=== PATIENT | male | born 1975 | race Caucasian/White ===

== ENCOUNTER 2020-07-16 11:52 | Inpatient (IN) | payer OTHER ==
[2020-07-16] MEDS ORDERED: Fentanyl 100 MCG/2 ML VIAL ONE ×2 (12:18→13:33)
[2020-07-16] MEDS ORDERED: CEFAZOLIN 1 GM VIAL ONE (12:18)
[2020-07-16 12:26] LABS: #Basophils 0.1 thou/uL (0.0-0.2); #Eosinphils 0.1 thou/uL (0.0-0.7); #Lymphocytes 1.7 thou/uL (1.20-3.40); #Monocytes 0.8 thou/uL (0.11-0.59); #Neutrophils 6.8 thou/uL (1.40-6.50); %Basophils 0.9 % (0.0-1.0); %Eosinophils 0.7 % (0.0-10.0); %Lymphocytes 17.8 % (21.0-51.0); %Monocytes 8.2 % (0.0-10.0); %Neutrophils 72.4 % (42.0-75.0); Hemoglobin 15.4 g/dL (14.0-18.0); Mean Corpuscular HGB CONC 33.9 g/dL (32.0-36.0); Mean Corpuscular Hemoglobin 32.2 pg (27.0-31.0); Mean Corpuscular Volume 94.7 fL (78.0-98.0); Mean Platelet Volume 7.6 fL (7.4-10.4); Platelet Count 321 thou/uL (130-400); RBC Distribution Width 11.4 % (11.5-14.5); Red Blood Cell (RBC) Count 4.79 mill/uL (4.70-6.10); White Blood Cell (WBC) Count 9.4 thou/uL (4.8-10.8)
[2020-07-16 12:40] LABS: PTT 24.2 sec (22.9-36.1)
[2020-07-16 12:47] LABS: ALT (SGPT) 19 U/L (8-55); AST (SGOT) 16 U/L (5-34); Albumin 4.3 g/dL (3.5-5.0); Alkaline Phosphatase 94 U/L (40-110); Anion Gap 14 mmol/L (10-20); BUN (Urea Nitrogen) 13 mg/dL (8.9-20.6); Bilirubin, Total 0.2 mg/dL (0.2-1.2); Calc. Creatinine Clearance 0 mL/min (70-130); Calcium 9.3 mg/dL (7.8-10.44); Carbon Dioxide 22 mmol/L (22-29); Chloride 104 mmol/L (98-107); Globulin 3.6 g/dL (2.4-3.5); Glucose 114 mg/dL (70-105); Protein, Total 7.9 g/dL (6.0-8.3); Sodium 136 mmol/L (136-145)
[2020-07-16 12:48] LABS: INR-International Normal Ratio 0.9
[2020-07-16] MEDS ORDERED: Bupivacaine 0.5% 10 ML VIAL ONE (13:00)
[2020-07-16] MEDS ORDERED: Succinylcholine 200 MG/10 ml SYRINGE FS ONE (13:52)
[2020-07-16] MEDS ORDERED: ePHEDrine Sulfate 50 MG/10 ML VIAL ONE (13:52)
[2020-07-16] MEDS ORDERED: PHENYLEPHRINE-NS 100 MCG/ML 10 ML SYRINGE ONE (13:52)
[2020-07-16] MEDS ORDERED: Rocuronium Bromide 10 MG/ML (10ML VIAL) ONE (13:52)
[2020-07-16] MEDS ORDERED: Glycopyrrolate 0.2 MG/ML 5 ML SYRINGE ONE (13:52)
[2020-07-16] MEDS ORDERED: Ketamine 50 MG/ML (10ML VIAL) ONE (13:54)
[2020-07-16] MEDS ORDERED: Midazolam HCl 2 mg/2 ml Vial ONE (13:57)
[2020-07-16] MEDS ORDERED: Gentamicin 80 MG/2 ML VIAL ONE ×2 (14:17→14:19)
[2020-07-16] MEDS ORDERED: Sodium Chloride 0.9% 10 ML ONE (14:20)
[2020-07-16] MEDS ORDERED: Sodium Chloride 0.9% 40 ML ONE (14:22)
[2020-07-16 14:25] LABS: SARS-CoV-2 NAA Rapid Test Not Detected (NotDetected)
[2020-07-16] MEDS ORDERED: Bupivacaine PF 0.5% 30 ML VIAL ONE (15:05)
[2020-07-16] MEDS ORDERED: Heparin 5,000 UNITS/ML VIAL ONE (15:18)
[2020-07-16] MEDS ORDERED: Lidocaine 2% PF 5 ML VIAL ONE (15:18)
[2020-07-16] MEDS ORDERED: Hetastarch 6% 500 ML 500 ML ONE (15:18)
[2020-07-16] MEDS ORDERED: HYDROmorphone 2 MG/ML VIAL ONE (16:07)
[2020-07-16] MEDS ORDERED: Ondansetron HCl/PF 4 MG/2 ML Vial IVP PRN (17:01)
[2020-07-16] MEDS ORDERED: HYDROmorphone 2 MG/ML VIAL SLOW IVP PRN (17:01)
[2020-07-16] MEDS ORDERED: Ketorolac Tromethamine 30 MG/ML VIAL IVP PRN (17:01)
[2020-07-16] MEDS ORDERED: Promethazine HCl 25 MG/ML VIAL IM PRN (18:13)
[2020-07-16] MEDS ORDERED: Ondansetron PF 4 MG/2 ML Vial IVP PRN ×2 (18:13→18:54)
[2020-07-16] MEDS ORDERED: HYDROcodone/Acetaminophen 5/325 mg Tablet PO PRN (18:13)
[2020-07-16] MEDS ORDERED: Acetaminophen 325 MG TAB PO PRN (18:13)
[2020-07-16] MEDS ORDERED: Fentanyl 100 MCG/2 ML VIAL SLOW IVP PRN (18:13)
[2020-07-16] MEDS ORDERED: traMADol HCl 50 MG TAB PO PRN ×2 (18:13→18:54)
[2020-07-16] MEDS ORDERED: Communication Order-Pharmacy FS SCH (18:15)
[2020-07-16] MEDS ORDERED: Sodium Chloride 0.9% 100 ML IV SCH (18:15)
[2020-07-16] MEDS ORDERED: Meperidine HCl/PF 25 MG/ML VIAL IM PRN (18:16)
[2020-07-16] MEDS ORDERED: Heparin 5,000 UNITS in Sodium Chloride 0.9% 500 ML SC SCH (18:45)
[2020-07-16] MEDS ORDERED: Dextrose 5% in Water 1,000 ML IV PRN (18:54)
[2020-07-16] MEDS ORDERED: Ondansetron ODT 4 MG TAB PO PRN (18:54)
[2020-07-16] MEDS ORDERED: Dextrose 50% Abboject 50 ML SYRINGE SLOW IVP PRN (18:54)
[2020-07-16] MEDS ORDERED: hydrALAZINE 20 MG/ML VIAL SLOW IVP PRN (18:54)
[2020-07-16] MEDS ORDERED: Sodium Chloride 0.9% 1,000 ML IV SCH (18:54)
[2020-07-16] MEDS: Aspirin 81 mg Enteric Coated Tablet PO SCH (19:33)
[2020-07-16] MEDS: Famotidine 20 MG TAB PO SCH (19:33)
[2020-07-16] MEDS: Acetaminophen 500 MG TAB PO SCH (19:33)
[2020-07-16] MEDS: Vancomycin 1.5 GRAM/300 ML BAG 1.5 GM in Premix Bag 1 BAG IVPB SCH (19:34)
[2020-07-16 20:46] VITALS: BMI 37.2
[2020-07-16] MEDS ORDERED: TETANUS AND DIPHTHERIA TOX/PF 0.5 ML DISP.SYRIN IM SCH (21:00)
[2020-07-16] MEDS: Ibuprofen 600 MG TAB PO SCH (21:03)
[2020-07-16] MEDS: Cyclobenzaprine 10 MG TAB PO PRN (21:03)
[2020-07-16] MEDS: Morphine 4 MG/ML VIAL SLOW IVP PRN (21:04)
[2020-07-16] MEDS: traMADol HCl 50 MG TAB PO PRN (23:36)
[2020-07-17] MEDS: Morphine 4 MG/ML VIAL SLOW IVP PRN ×3 (00:01→20:25)
[2020-07-17] MEDS: Acetaminophen 500 MG TAB PO SCH ×4 (02:03→20:22)
[2020-07-17] MEDS: Ibuprofen 600 MG TAB PO SCH ×3 (05:41→20:23)
[2020-07-17 06:24] LABS: #Lymphocytes 2.5 thou/uL (1.20-3.40); #Neutrophils 8.2 thou/uL (1.40-6.50); %Basophils 0.3 % (0.0-1.0); %Eosinophils 0.4 % (0.0-10.0); %Monocytes 8.8 % (0.0-10.0); %Neutrophils 69.5 % (42.0-75.0); Hemoglobin 11.5 g/dL (14.0-18.0); Mean Corpuscular HGB CONC 34.5 g/dL (32.0-36.0); Mean Corpuscular Volume 95.6 fL (78.0-98.0); Mean Platelet Volume 7.9 fL (7.4-10.4); Platelet Count 268 thou/uL (130-400); RBC Distribution Width 11.5 % (11.5-14.5); Red Blood Cell (RBC) Count 3.49 mill/uL (4.70-6.10); White Blood Cell (WBC) Count 11.9 thou/uL (4.8-10.8)
[2020-07-17] MEDS: Vancomycin 1.5 GRAM/300 ML BAG 1.5 GM in Premix Bag 1 BAG IVPB SCH ×2 (09:00→20:22)
[2020-07-17] MEDS: Famotidine 20 MG TAB PO SCH ×2 (09:16→20:23)
[2020-07-17] MEDS: Aspirin 81 mg Enteric Coated Tablet PO SCH ×2 (09:16→20:23)
[2020-07-17] MEDS: traMADol HCl 50 MG TAB PO PRN (09:17)
[2020-07-17] MEDS: Cyclobenzaprine 10 MG TAB PO PRN (20:23)
[2020-07-18] MEDS: Acetaminophen 500 MG TAB PO SCH ×2 (01:34→08:08)
[2020-07-18] MEDS: Morphine 4 MG/ML VIAL SLOW IVP PRN ×2 (01:35→09:31)
[2020-07-18] MEDS: Ibuprofen 600 MG TAB PO SCH (05:14)
[2020-07-18] MEDS: Famotidine 20 MG TAB PO SCH (08:08)
[2020-07-18] MEDS: Vancomycin 1.5 GRAM/300 ML BAG 1.5 GM in Premix Bag 1 BAG IVPB SCH (08:08)
[2020-07-18] MEDS ORDERED: Aspirin 325 MG TAB PO SCH (09:00)
[2020-07-18 09:38] LABS: Calc. Creatinine Clearance 188 mL/min (70-130); Vancomycin, Trough 5.3 ug/mL
[2020-07-18 11:51] VITALS: BP 134/89; TEMP 98.2
[2020-07-18] MEDS ORDERED: VANCOMYCIN 2 GRAM/400 ML BAG 2 GM in Premix Bag 1 BAG IVPB SCH (20:00)
[2020-07-19 12:29] LABS: Actual Bicarbonate (HCO3a) 23.1 mEq/L (22-28); Analyzer IN Cardio OR; Base Excess (BEa) -3.1 mEq/L (-2.0 to +3.0); CO2 Tension 45.8 mmHg (35.0-45.0); Calcium, Ionized (arterial) 1.18 mmol/L (1.12-1.30); Carboxyhemoglobin (COHb) 0.4 gm% (0.0-3.0); Hemoglobin (Hb) 13.1 g/dL (14.0-18.0); O2 Tension (PaO2), arterial 247.7 mmHg (80.0-100.0); Potassium - ABG Lab 3.86 mmol/L (3.70-5.30); Puncture Site Arterial Line; pH, Arterial 7.32 (7.35-7.45)
== END 2020-07-18 13:50 | disposition home or self-care (01) | DRG 41 ==
LOC: ERS 11:52 → SDC 15:00 → SURG B 16:00
PROVIDERS: ADMIT Orthopaedic Surgery Hand Surgery; ATTEND Orthopaedic Surgery Hand Surgery
PROC: 01Q60ZZ Repair Radial Nerve, Open Approach (ICD-10-PCS; principal; 2020-07-16)
PROC: 0KBD0ZZ Excision of Left Hand Muscle, Open Approach (ICD-10-PCS; 2020-07-16)
PROC: 03QF0ZZ Repair Left Hand Artery, Open Approach (ICD-10-PCS; 2020-07-16)
PROC: 0KQD0ZZ Repair Left Hand Muscle, Open Approach (ICD-10-PCS; 2020-07-16)
DX: S64.32XA Injury of digital nerve of left thumb, initial encounter (principal); S66.222A Laceration of extensor muscle, fascia and tendon of left thumb at wrist and hand level, initial encounter; S66.321A Laceration of extensor muscle, fascia and tendon of left index finger at wrist and hand level, initial encounter; S65.511A Laceration of blood vessel of left index finger, initial encounter; G89.29 Other chronic pain; D64.9 Anemia, unspecified; Z20.822 Contact with and (suspected) exposure to COVID-19; W26.0XXA Contact with knife, initial encounter; M54.9 Dorsalgia, unspecified; R58 Hemorrhage, not elsewhere classified; Z98.890 Other specified postprocedural states; Y93.89 Activity, other specified
CPT/HCPCS: 0240U; 36415; 80053; 80202; 82565; 82805; 85025; 85610; 85730; 86850; 86900; 86901; 96365; 96375; J0690; J1170; J1580; J1644; J2001; J2250; J2270; J2405; J3010; J3370; J3490; J7030; S0020